=== PATIENT | male | born 1975 | race Caucasian/White ===

== ENCOUNTER 2017-07-31 11:35 | Emergency (ER) | payer MEDICAID ==
[~2017-07-31] VITALS: Ht 193 cm; Wt 89.0 kg
[2017-07-31] MEDS ORDERED: PREDNISONE 20MG TABLET PO ONE (12:15)
[2017-07-31] MEDS ORDERED: VALACYCLOVIR HCL 500MG TABLET PO SCH (12:15)
[2017-07-31 12:36] LABS: EOSINOPHILS % 3.4 % (0.0-5.0); HEMATOCRIT. 45.2 % (42.0-52.0); HEMOGLOBIN. 15.6 g/dL (14.0-18.0); LYMPHOCYTES % 23.9 % (20.0-50.0); MEAN CORPUSCULAR HEMOGLOBIN 29.5 pg (28.0-32.0); MEAN CORPUSCULAR VOLUME 85.4 fL (80.0-94.0); MEAN PLATELET VOLUME 9.1 fl (7.4-10.4); MONOCYTES % 5.1 % (2.0-8.0); NEUTROPHILS % 66.6 % (40.0-76.0); PLATELET 178 x1000/uL (130-400); RED BLOOD CELL COUNT 5.29 mill/uL (4.7-6.1); RED CELL DISTRIBUTION WIDTH 14.7 % (11.6-14.6)
[2017-07-31 12:42] LABS: CHLORIDE 100 mEq/L (98-107)
[2017-07-31 12:48] LABS: *AMPHETAMINES SCREEN URINE NEGATIVE (NEGATIVE); *BARBITURATES SCREEN URINE NEGATIVE (NEGATIVE); *BENZODIAZEPINES SCREEN URINE NEGATIVE (NEGATIVE); *COCAINE SCREEN URINE NEGATIVE (NEGATIVE); CANNABINOID URINE SCREEN NEGATIVE (NEGATIVE); METHADONE URINE SCREEN NEGATIVE (NEGATIVE); OPIATES URINE SCREEN NEGATIVE (NEGATIVE); PHENCYCLIDINE URINE SCREEN NEGATIVE (NEGATIVE)
[2017-07-31 12:50] LABS: CARBON DIOXIDE 27 mEq/L (21-32); ETHANOL BLOOD < 10 mg/dL
[2017-07-31 12:51] VITALS: BP 124/98
== END 2017-07-31 13:27 | disposition home or self-care (01) ==
LOC: ER 12:45
DX: G51.0 Bell's palsy (principal); E11.9 Type 2 diabetes mellitus without complications; I10 Essential (primary) hypertension; F31.9 Bipolar disorder, unspecified
CPT/HCPCS: 36415; 80053; 80305; 85025; 99284; G0482; J7512

== ENCOUNTER 2018-12-17 12:53 | Emergency (ER) | payer MEDICAID ==
[~2018-12-17] VITALS: Ht 175.3 cm; Wt 95.0 kg
[2018-12-17 12:56] VITALS: BP 154/96
== END 2018-12-17 16:00 | disposition left against medical advice (07) ==
LOC: ER 12:53
DX: R51 Headache (principal); Z53.21 Procedure and treatment not carried out due to patient leaving prior to being seen by health care provider